=== PATIENT | male | born 1950 | race Caucasian/White ===

== ENCOUNTER 2018-08-20 18:32 | Emergency (ER) | payer BC, OTHER ==
--- NOTE | 2018-08-20 18:46 | EDPHY ---
H & P Time Seen by Provider: 08/20/18 18:46 HPI/ROS: Chief complaint. Abdominal pain HPI. 67-year-old male with left flank pain that began this morning. It has been off and on all day. Pain off and on through the day today. He was well yesterday. Symptoms began this morning. At times he has quite severe pain in his left flank and at times he has no pain. When he has pain he gets sweaty and nauseated. It is in the left flank. No radiation. No change with movement. He feels he can't find a comfortable position. Denies urinary symptoms other than dark urine. No fever. No chest discomfort or trouble breathing 10 point review of systems otherwise negative Past Medical/Surgical History: Knee replacement, rotator cuff repair Social History: Single, nonsmoker, no alcohol Smoking Status: Never smoked Physical Exam: General Appearance: Alert well-developed male no distress initially and then fairly significant pain later. Eyes: Pupils equal and round no pallor or injection. ENT, Mouth: Mucous membranes are moist. Respiratory: There are no retractions, lungs are clear to auscultation. Cardiovascular: Regular rate and rhythm. Gastrointestinal: Abdomen is soft and nontender, no masses, bowel sounds normal. Patient shows me left flank pain but not tender to palpation Neurological: Awake and alert, sensory and motor exams grossly normal. Skin: Warm and dry, no rashes. Musculoskeletal: Neck is supple nontender. Extremities symmetrical, full range of motion. Psychiatric: Patient is oriented X 3, there is no agitation. Constitutional: Initial Vital Signs Temperature (C) 37.0 C 08/20/18 18:37 Heart Rate 63 08/20/18 18:37 Respiratory Rate 18 08/20/18 18:37 Blood Pressure 151/75 H 08/20/18 18:37 O2 Sat (%) 98 08/20/18 18:37 O2 Delivery Mode Room Air Allergies/Adverse Reactions: naproxen [From Aleve] Allergy (Verified 08/20/18 18:35) Home Medications: Medication Instructions Recorded oxyCODONE/APAP 5/325 [Percocet 1 tab PO Q4-6PRN PRN #7 tab 08/20/18 5/325] Medical Decision Making - Diagnostics Imaging Results: Imaging Impressions Abdomen CT 08/20/18 19:15 Impression: 1. Mild to moderate left-sided hydronephrosis secondary to a 2 mm left UVJ calculus that is almost passed into the bladder. 2. Hypodense lesion right lobe liver inferolaterally. Findings are nonspecific. This could represent hemangioma. Consider follow-up ultrasound or MRI in 6 months to confirm stability and benign features. 3. Mild constipation with tortuous colon. Findings discussed with Mitul Morgan M.D. at 20:39 hour, 08/20/2018. CT abdomen pelvis shows 2 mm stone at the left UVJ. Hydronephrosis proximally. There is also a hypodense lesion in the liver that requires follow-up ultrasound in 6 months. Patient is also constipated. Reviewed by me and discussed with Dr. Suh Procedures: IV normal saline. Toradol for pain ED Course/Re-evaluation: On re-evaluation patient was not initially in pain. And then after CT pain started again. He is medicated with IV Toradol. The chart lists allergy to Naprosyn. However on questioning the patient he tells me he is taking Naprosyn and not allergic to Naprosyn Re-evaluation 9:45 p.m.. Patient is stable and pain well controlled. Patient and I discussed treatment plan imaging study results, criteria for return importance of follow-up and further evaluation. He expresses understanding and agreement. We also discussed the incidental finding of the hemangioma requiring six-month ultrasound follow-up Differential Diagnosis: I considered diverticulitis, kidney stone, urinary tract infection, pyelonephritis - Data Points Laboratory Results: Laboratory Results 08/20/18 18:45 08/20/18 18:45 08/20/18 08/20/18 08/20/18 20:15 18:45 18:45 WBC 10.38 10^3/uL H 10^3/uL (3.80-9.50) RBC 4.72 10^6/uL 10^6/uL (4.40-6.38) Hgb 14.5 g/dL g/dL (13.7-17.5) Hct 42.2 % % (40.0-51.0) MCV 89.4 fL fL (81.5-99.8) MCH 30.7 pg pg (27.9-34.1) MCHC 34.4 g/dL g/dL (32.4-36.7) RDW 13.1 % % (11.5-15.2) Plt Count 184 10^3/uL 10^3/uL (150-400) MPV 9.7 fL fL (8.7-11.7) Neut % (Auto) 87.2 % H % (39.3-74.2) Lymph % (Auto) 7.9 % L % (15.0-45.0) [place] % (Auto) 4.3 % L % (4.5-13.0) Eos % (Auto) 0.1 % L % (0.6-7.6) Baso % (Auto) 0.2 % L % (0.3-1.7) Nucleat RBC Rel Count 0.0 % % (0.0-0.2) Absolute Neuts (auto) 9.05 10^3/uL H 10^3/uL (1.70-6.50) Absolute Lymphs (auto) 0.82 10^3/uL L 10^3/uL (1.00-3.00) Absolute Monos (auto) 0.45 10^3/uL 10^3/uL (0.30-0.80) Absolute Eos (auto) 0.01 10^3/uL L 10^3/uL (0.03-0.40) Absolute Basos (auto) 0.02 10^3/uL 10^3/uL (0.02-0.10) Absolute Nucleated RBC 0.00 10^3/uL 10^3/uL (0-0.01) Immature Gran % 0.3 % % (0.0-1.1) Immature Gran # 0.03 10^3/uL 10^3/uL (0.00-0.10) Sodium 138 mEq/L mEq/L (135-145) Potassium 3.9 mEq/L mEq/L (3.5-5.2) Chloride 101 mEq/L mEq/L (97-110) Carbon Dioxide 26 mEq/l mEq/l (22-31) Anion Gap 11 mEq/L mEq/L (6-14) BUN 20 mg/dL mg/dL (7-23) Creatinine 0.9 mg/dL mg/dL (0.7-1.3) Estimated GFR > 60 Glucose 102 mg/dL H mg/dL (70-100) Calcium 9.4 mg/dL mg/dL (8.5-10.4) Lipase 85 IU/L IU/L (23-300) Urine Color YELLOW Urine Appearance MODERATELY TURBID Urine pH 5.0 (5.0-7.5) Ur Specific [place] 1.028 (1.002-1.030) Urine Protein NEGATIVE (NEGATIVE) Urine Ketones TRACE H (NEGATIVE) Urine Blood NEGATIVE (NEGATIVE) Urine Nitrate NEGATIVE (NEGATIVE) Urine Bilirubin NEGATIVE (NEGATIVE) Urine Urobilinogen NEGATIVE EU EU (0.2-1.0) Ur Leukocyte Esterase NEGATIVE (NEGATIVE) Urine RBC 3-5 /hpf H /hpf (0-3) Urine WBC 1-3 /hpf /hpf (0-3) Ur Epithelial Cells TRACE /lpf /lpf (NONE-1+) Uric Acid Crystals PRESENT /hpf /hpf (NONE-1+) Urine Mucus TRACE /lpf /lpf (NONE-1+) Urine Glucose NEGATIVE (NEGATIVE) Medications Given: Discontinued Medications Sodium Chloride (Ns) 1,000 mls @ 0 mls/hr IV EDNOW ONE; Wide Open PRN Reason: Protocol Stop: 08/20/18 19:15 Last Admin: 08/20/18 19:30 Dose: 1,000 mls Ketorolac Tromethamine (Toradol) 30 mg IVP EDNOW ONE Stop: 08/20/18 20:54 Last Admin: 08/20/18 20:57 Dose: 30 mg Departure - Departure Disposition: Home, Routine, Self-Care Clinical Impression: Calculus of left kidney Condition: Good Instructions: Kidney Stones (ED), How to Strain Your Urine (ED) Additional Instructions: Drink plenty of fluids and stay hydrated keeping your urine clear Strain your urine the next 24 hr and save stone for analysis Naprosyn as prescribed or ibuprofen 600 mg every 6 hr for discomfort. Percocet in addition for discomfort if necessary--1 pill every 4-6 hours as needed for pain Return for worsening symptoms Follow-up with Urology for further evaluation You have a 4 cm hypodense lesion in your liver. It requires an ultrasound for follow-up in 6 months. Referrals: Jem Humphries MD [Medical Doctor] - 2-3 days, call for appt. Unknown,Unknown [Primary Care Provider] - As per Instructions Zhang Givens MD [Medical Doctor] - As per Instructions Prescriptions: oxyCODONE/APAP 5/325 [Percocet ] 1 tab PO Q4-6PRN PRN #7 tab PRN Reason: Pain, Moderate
[2018-08-20] MEDS ORDERED: NS 1,000 ML IV ONE (19:14)
[2018-08-20 19:24] LABS: PLATELET COUNT 184 10^3/uL (150-400)
[2018-08-20] MEDS ORDERED: IOPAMIDOL (ISOVUE-300) 100 ML BTL ONE (19:43)
[2018-08-20] MEDS ORDERED: KETOROLAC 30 MG/1 ML SDV IVP ONE (20:53)
[2018-08-20] MEDS ORDERED: KETOROLAC 30 MG/1 ML SDV ONE (20:56)
[2018-08-20] MEDS ORDERED: OXYCODONE/APAP 5/325MG PREPACK#4 BTL TAKEHOME ONE (21:52)
[2018-08-20 22:20] VITALS: BP 145/81
== END 2018-08-20 22:54 | disposition home or self-care (01) ==
DX: N20.0 Calculus of kidney (principal); E86.9 Volume depletion, unspecified
CPT/HCPCS: 96374; J1885; Q9967